=== PATIENT | female | born 1970 | race Caucasian/White ===

== ENCOUNTER → 2020-03-12 | Outpatient (CLI) | payer MEDICAID ==
[2020-03-12 09:41] LABS: HCT 43.4 % (34.0-46.0); HGB 13.6 gm/dL (11.4-16.0); MCH 28.5 pg (25.0-35.0); MCHC 31.4 g/dL (31.0-37.0); Mean Platelet Volume 7.4; Platelet Count 225 k/uL (150-450); RBC 4.77 m/uL (3.80-5.40); RDW 13.5 % (11.5-15.5); WBC 7.9 k/uL (3.8-10.6)
[2020-03-12 16:10] LABS: Cyclic Citrull Pep IgG Unit 0.7 U/mL; Cyclic Citrullinated Pep IgG NEGATIVE (NEGATIVE)
[2020-03-12 16:30] LABS: Erythrocyte Sedimentation Rate 4 mm/Hr (0-30)
[2020-03-12 17:12] LABS: ALT 18 U/L (8-44); AST 18 U/L (13-35); African American GFR (CKD) 116.3 (60.0-200.0); Albumin/Globulin Ratio 1.91 (1.60-3.17); Alkaline Phosphatase 74 U/L (41-126); BUN/Creat Ratio 21.43 Ratio (12.00-20.00); C Reactive Protein <0.4 mg/dL (0.0-0.8); Calcium 9.3 mg/dL (8.7-10.3); Carbon Dioxide 28.6 mmol/L (21.6-31.8); Chloride 106 mmol/L (96-109); Chol/HDL Ratio 2.69; Cholesterol 199 mg/dL (0-200); Globulin 2.3 g/dL (1.6-3.3); Glucose 89 mg/dL (70-110); LDL Cholesterol,Calculated 107.2 mg/dL (0.0-131.0); Non-African American GFR(CKD) 100.3 (60.0-200.0); Potassium 4.3 mmol/L (3.5-5.5); Rheumatoid Factor, Qnt 8 IU/mL (0-15); Sodium 139 mmol/L (135-145); Total Bilirubin 0.9 mg/dL (0.3-1.2); Total Protein 6.7 g/dL (6.2-8.2); Uric Acid 5.5 mg/dL (2.9-7.7)
[2020-03-16 12:26] LABS: ANA Pattern Speckled; ANA Pattern 2 Nucleolar
== END | disposition home or self-care (01) ==
LOC: LABWHC1 08:22
PROVIDERS: ATTEND Family Medicine
DX: Z00.01 Encounter for general adult medical examination with abnormal findings (principal); M25.50 Pain in unspecified joint; E03.9 Hypothyroidism, unspecified
CPT/HCPCS: 36415; 80053; 80061; 84439; 84443; 84550; 85027; 85652; 86038; 86039; 86140; 86200; 86431; 86618

== ENCOUNTER → 2020-05-13 | Outpatient (CLI) | payer MEDICAID ==
[2020-05-13 14:46] LABS: Appearance,Urine Clear (Clear); Bilirubin,Urine Negative (Negative); Blood,Urine Negative (Negative); Color,Urine Light Yellow; Glucose,Urine (UA) Negative (Negative); Ketones,Urine Negative (Negative); Leukocyte Esterase,Urine Negative (Negative); Nitrite,Urine Negative (Negative); PH, Urine 5.5 (5.0-8.0); Protein,Urine Negative (Negative); Specific Gravity,Urine 1.006 (1.001-1.035); Urobilinogen,Urine <2.0 mg/dL (<2.0)
[2020-05-13 19:46] LABS: Anti-Smith Ab Interp NEGATIVE (NEGATIVE); Cardiolipin Ab IgG Interp NEGATIVE (NEGATIVE); Cardiolipin Ab IgM Interp NEGATIVE (NEGATIVE); Cardiolipin IgA Antibody 1.8 U/mL; Cardiolipin IgM Antibody 1.2 U/mL; DNA Double-Stranded POSITIVE (NEGATIVE)
[2020-05-14 14:17] LABS: Glucose-6-Phosphate Dehydrogen 12.8 U/g Hgb (7.0-20.5)
[2020-05-14 14:38] LABS: C-ANCA <1:20 Titer (<1:20)
[2020-05-14 14:52] LABS: APTT 37 Sec(s) (<43); Dilute Russell Viper Venom 35 Sec(s) (<44)
== END | disposition home or self-care (01) ==
LOC: LABWHC1 13:52
PROVIDERS: ATTEND Internal Medicine Rheumatology
DX: R53.83 Other fatigue (principal); R76.9 Abnormal immunological finding in serum, unspecified; R21 Rash and other nonspecific skin eruption
CPT/HCPCS: 36415; 81003; 82550; 82955; 83516; 85613; 85730; 86147; 86160; 86225; 86235; 86255; 86880

== ENCOUNTER → 2020-07-15 | Outpatient (CLI) | payer OTHER | END | disposition home or self-care (01) | LOC: LABWHC1 10:43 | PROVIDERS: ATTEND Family Medicine | DX: J01.90 Acute sinusitis, unspecified (principal); R43.0 Anosmia; Z20.828 Contact with and (suspected) exposure to other viral communicable diseases | CPT/HCPCS: U0003; C9803 ==